=== PATIENT | female | born 1985 | race African-American/Black ===

== ENCOUNTER 2020-04-18 19:57 | Inpatient (IN) | payer MEDICAID ==
[~2020-04-18] VITALS: Ht 165.1 cm; Wt 64.0 kg
[2020-04-18] MEDS ORDERED: NALOXONE HCL 0.4 MG/ML 1ML VIAL IM PRN (22:00)
[2020-04-18] MEDS ORDERED: METHYLERGONOVINE MALEATE 0.2 MG/ML IM PRN (22:00)
[2020-04-18] MEDS: LACTATED RINGERS 1,000 ML IV SCH (22:00)
[2020-04-18] MEDS ORDERED: LIDOCAINE HCL 1% 20ML VIAL (Pyxis) INJ INFIL SCH (22:00)
[2020-04-18 22:25] LABS: INR 0.9; PARTIAL THROMBOPLASTIN TIME 23.8 sec (23.4-31.0); PROTHROMBIN TIME 9.7 sec (9.6-11.0)
[2020-04-18 22:26] LABS: BASOPHILS % 1.3 % (0.0-2.0); EOSINOPHILS % 0.1 % (0.0-5.0); HEMATOCRIT. 31.2 % (36.0-48.0); HEMOGLOBIN. 10.8 g/dL (12.0-16.0); LYMPHOCYTES % 20.9 % (20.0-50.0); MEAN CORPUSCULAR HEMOGLOBIN 32.7 pg (28.0-32.0); MEAN CORPUSCULAR VOLUME 94.2 fL (81.0-99.0); MEAN PLATELET VOLUME 9.7 fl (7.4-10.4); NEUTROPHILS % 67.7 % (40.0-76.0); PLATELET 230 x1000/uL (130-400); RED BLOOD CELL COUNT 3.31 mill/uL (4.2-5.4); RED CELL DISTRIBUTION WIDTH 14.9 % (11.6-14.6)
[2020-04-18 22:36] LABS: CLARITY URINE CLOUDY (CLEAR); COLOR URINE YELLOW (YELLOW); KETONES URINE NEGATIVE (NEGATIVE); LEUKOCYTE ESTERASE URINE NEGATIVE (NEGATIVE); NITRITE URINE NEGATIVE (NEGATIVE); OCCULT BLOOD URINE NEGATIVE (NEGATIVE); PROTEIN URINE NEGATIVE (NEGATIVE); UROBILINOGEN URINE 0.2 E.U./dL (0.2-1.0)
[2020-04-18 22:56] LABS: *BARBITURATES SCREEN URINE NEGATIVE (NEGATIVE)
[2020-04-18 22:56] LABS: HEPATITIS B SURFACE ANTIGEN NEGATIVE
[2020-04-18 22:57] LABS: *AMPHETAMINES SCREEN URINE NEGATIVE (NEGATIVE); *BENZODIAZEPINES SCREEN URINE NEGATIVE (NEGATIVE); *COCAINE SCREEN URINE NEGATIVE (NEGATIVE); METHADONE URINE SCREEN NEGATIVE (NEGATIVE); OPIATES URINE SCREEN NEGATIVE (NEGATIVE); PHENCYCLIDINE URINE SCREEN NEGATIVE (NEGATIVE)
[2020-04-18] MEDS ORDERED: DINOPROSTONE 10MG VAGINAL INSERT VG NR (23:00)
[2020-04-18] MEDS ORDERED: PENICILLIN G POTASSIUM 5 MMU in DEXT 5% WATER 100 ML IV SCH (23:00)
[2020-04-18 23:01] LABS: CANNABINOID URINE SCREEN PRESUMTIVE POSITIVE (NEGATIVE)
[2020-04-19] MEDS: LACTATED RINGERS 1,000 ML IV SCH ×3 (03:08→17:35)
[2020-04-19] MEDS: DEXT 5%/LR + PITOCIN 20UNITS/L 1,000 ML IV SCH (14:31)
[2020-04-19] MEDS: PENICILLIN G POTASSIUM 2.5 MMU in DEXTROSE 5% WATER 50 ML IV SCH ×2 (16:51→20:28)
[2020-04-20] MEDS: PENICILLIN G POTASSIUM 2.5 MMU in DEXTROSE 5% WATER 50 ML IV SCH (01:19)
[2020-04-20] MEDS ORDERED: LACTATED RINGERS 1,000 ML IV SCH (04:45)
[2020-04-20] MEDS ORDERED: PENICILLIN G POTASSIUM 2.5 MMU in DEXTROSE 5% WATER 50 ML IV SCH (06:00)
[2020-04-20] MEDS ORDERED: BUTORPHANOL TARTRATE 2 MG/ML VIAL IV PRN (08:00)
[2020-04-20] MEDS ORDERED: NALOXONE HCL 0.4 MG/ML 1ML VIAL IM SCH (08:30)
[2020-04-20] MEDS ORDERED: METHYLERGONOVINE MALEATE 0.2 MG/ML IM SCH (09:00)
[2020-04-20] MEDS ORDERED: LIDOCAINE HCL 1% 20ML VIAL (Pyxis) INJ ONE (09:53)
[2020-04-20] MEDS ORDERED: DEXT 5%/LR + PITOCIN 20UNITS/L 1,000 ML IV SCH (10:09)
[2020-04-20] MEDS: DEXT 5%/LR + PITOCIN 20UNITS/L 1,000 ML IV SCH (10:11)
[2020-04-20] MEDS ORDERED: IBUPROFEN 800MG TABLET PO PRN (10:15)
[2020-04-20] MEDS ORDERED: RHO(D) IMMUNE GLOBULIN 300 MCG/SYR IM PRN (10:15)
[2020-04-20] MEDS ORDERED: LANOLIN OINT 7GM TUBE TOP PRN (10:15)
[2020-04-20] MEDS ORDERED: ALBUTEROL 6.7GM HFA INHALER ORI PRN (10:15)
[2020-04-20] MEDS ORDERED: IBUPROFEN 400MG TABLET PO PRN (10:15)
[2020-04-20] MEDS ORDERED: DIPHENHYDRAMINE 25MG CAPSULE PO PRN (10:15)
[2020-04-20] MEDS ORDERED: ALBUTEROL (0.5%) 2.5MG/0.5ML NEB HHN PRN ×2 (10:30)
[2020-04-20 11:30] VITALS: BP 104/60
[2020-04-20 12:00] VITALS: BP 106/69
[2020-04-20 16:20] VITALS: BP 107/70
[2020-04-20 20:00] VITALS: BP 125/79
[2020-04-20 23:33] LABS: CHLORIDE 106 mEq/L (98-107)
[2020-04-20 23:41] LABS: BASOPHILS % 0.6 % (0.0-2.0); HEMATOCRIT. 32.1 % (36.0-48.0); HEMOGLOBIN. 11.1 g/dL (12.0-16.0); LYMPHOCYTES % 8.1 % (20.0-50.0); MEAN CORPUSCULAR HEMOGLOBIN 32.6 pg (28.0-32.0); MEAN CORPUSCULAR VOLUME 94.4 fL (81.0-99.0); MEAN PLATELET VOLUME 9.1 fl (7.4-10.4); MONOCYTES % 7.3 % (2.0-8.0); PLATELET 220 x1000/uL (130-400); RED BLOOD CELL COUNT 3.41 mill/uL (4.2-5.4)
[2020-04-21 04:15] VITALS: BP 98/59
[2020-04-21 08:00] VITALS: BP 111/62
[2020-04-21] MEDS ORDERED: ENOXAPARIN 40MG/0.4ML SYR SUBCUT SCH (09:00)
[2020-04-21] MEDS ORDERED: PRENATAL VIT/FE FUMARATE/FA TABLET PO SCH (09:00)
[2020-04-21 17:01] VITALS: BP 104/62
[2020-04-25 09:06] LABS: CANNABINOID CONFIRMATION URINE Positive (.)
== END 2020-04-21 20:15 | disposition home or self-care (01) | DRG 560 ==
LOC: 8 EST LDRP 19:57 → OBSVTOIN 19:57 → 8EST 04-20 12:34
PROVIDERS: ADMIT Obstetrics & Gynecology; ATTEND Obstetrics & Gynecology
PROC: 10E0XZZ Delivery of Products of Conception, External Approach (ICD-10-PCS; principal; 2020-04-20)
PROC: 0HQ9XZZ Repair Perineum Skin, External Approach (ICD-10-PCS; 2020-04-20)
PROC: 3E0P7VZ Introduction of Hormone into Female Reproductive, Via Natural or Artificial Opening (ICD-10-PCS; 2020-04-20)
PROC: 3E033VJ Introduction of Other Hormone into Peripheral Vein, Percutaneous Approach (ICD-10-PCS; 2020-04-20)
DX: O99.824 Streptococcus B carrier state complicating childbirth (principal); O99.52 Diseases of the respiratory system complicating childbirth; O70.0 First degree perineal laceration during delivery; J45.909 Unspecified asthma, uncomplicated; O99.344 Other mental disorders complicating childbirth; Z37.0 Single live birth; F41.8 Other specified anxiety disorders; Z3A.38 38 weeks gestation of pregnancy; Z86.718 Personal history of other venous thrombosis and embolism; Q79.60 Ehlers-Danlos syndrome, unspecified; Z79.899 Other long term (current) drug therapy; Z88.8 Allergy status to other drugs, medicaments and biological substances
CPT/HCPCS: 36415; 80053; 80305; 80349; 81003; 85025; 86592; 86703; 86762; 86850; 86900; 87340; J0595; J1650; J2540; J2590; J3490; J7060